=== PATIENT | male | born 1970 | race Hispanic/Latino ===

== ENCOUNTER 2025-04-03 17:52 | Emergency (ER) | payer MEDICARE ==
[~2025-04-03 17:52] MED LIST: ASPIR 8181 MG PO; ATORVASTATIN CA20 MG PO; LEVOTHYROXINE50 MCG PO; METOPROLOL SUCC25 MG PO; RAMIPRIL5 MG PO; TRAZODONE HCL50 MG PO; TRESIVA SQ
[2025-04-03 20:00] VITALS: PULSE 71; RESP 16; TEMP 98.3
[2025-04-03 21:31] LABS: BASOPHILS % 1.0 % (0.0-1.0); EOSINOPHILS % 8.4 % (0.0-6.0); LYMPHOCYTES % 14.5 % (18.0-39.1); MONOCYTES % 10.1 % (4.4-11.3); NEUTROPHILS % 65.7 % (38.7-80.0); RED CELL DISTRIBUTION WIDTH 16.7 % (11.7-14.4)
[2025-04-03] MEDS: Vancomycin IV 1 GM in SODIUM CHLORIDE 0.9% 250ML 250 ML IV ONE (21:52)
[2025-04-03 22:23] LABS: EST GLOMERULAR FILTRATION RATE 92.0 ML/MIN (>=60)
[2025-04-04 00:19] VITALS: BP 142/84; PULSE 67; RESP 18; TEMP 98.3; O2SAT 98
== END 2025-04-03 23:55 | disposition home or self-care (01) ==
LOC: ER 22:07
DX: T81.40XA Infection following a procedure, unspecified, initial encounter (principal); Z89.512 Acquired absence of left leg below knee; I10 Essential (primary) hypertension; E11.9 Type 2 diabetes mellitus without complications; D64.9 Anemia, unspecified; E78.5 Hyperlipidemia, unspecified; I25.2 Old myocardial infarction; Z95.5 Presence of coronary angioplasty implant and graft
CPT/HCPCS: 36415; 73592; 80053; 83605; 85025; 87040; 99284; J2543; J3373; J7050